=== PATIENT | female | born 1970 | race American Indian/Alaskan Native ===

== ENCOUNTER 2021-12-25 11:43 | Emergency (ER) | payer SELFPAY ==
[2021-12-25 12:03] VITALS: BP 165/110
--- NOTE | 2021-12-25 12:41 | Emergency Department Report ---
ED General Adult HPI - General Chief complaint: Psych Stated complaint: I came here because my son asked me to come Time Seen by Provider: 12/25/21 12:04 Source: patient, RN notes reviewed Mode of arrival: Ambulatory Limitations: No Limitations - History of Present Illness Initial comments: This patient is a pleasant and cooperative 51-year-old female, who presents to the ER because she states her family members requested a psychiatric evaluation. The patient denies physical pain. The patient denies homicidality, suicidality, overdose and hallucinations. The patient denies cough and urinary symptoms. The patient does endorse that she is mildly depressed, and not eating much, because of the recent demise of a family member. She is not particular interested at this time and speaking to a mental health counselor or central processing tech. However, she is amenable and agreeable to history and physical with this author. -: Gradual Consistency: constant Improves with: none Worsens with: none Associated Symptoms: denies other symptoms - Related Data Allergies Allergy/AdvReac Type Severity Reaction Status Date / Time No Known Allergies Allergy Unverified 12/25/21 12:03 ED Review of Systems ROS: Stated complaint: MENTAL EVAL Other details as noted in HPI Comment: All other systems reviewed and negative Psychiatric: depression. denies: auditory hallucinations, visual hallucinations, homicidal thoughts, suicidal thoughts ED Physical Exam - General Limitations: No Limitations General appearance: alert, in no apparent distress - Head Head exam: Present: atraumatic, normocephalic - Eye Eye exam: Present: normal appearance, EOMI. Absent: nystagmus - ENT ENT exam: Present: normal exam, normal orophraynx, mucous membranes moist, normal external ear exam - Neck Neck exam: Present: normal inspection, full ROM. Absent: tenderness, meni ngismus - Respiratory Respiratory exam: Present: normal lung sounds bilaterally. Absent: respiratory distress, wheezes, rales, rhonchi, stridor, decreased breath sounds - Cardiovascular Cardiovascular Exam: Present: regular rate, normal rhythm, normal heart sounds. Absent: bradycardia, tachycardia, irregular rhythm, systolic murmur, diastolic murmur, rubs, gallop - GI/Abdominal GI/Abdominal exam: Present: soft. Absent: distended, tenderness, guarding, rebound, rigid, pulsatile mass - Extremities Exam Extremities exam: Present: normal inspection, full ROM, other (2+ pulses noted in the bilateral upper and lower extremities. There is no palpable cord. negative Homans sign. Muscular compartments are soft. The pelvis is stable.). Absent: pedal edema, calf tenderness - Back Exam Back exam: Present: normal inspection. Absent: tenderness, CVA tenderness (R), CVA tenderness (L), paraspinal tenderness, vertebral tenderness - Neurological Exam Neurological exam: Present: alert, oriented X3, normal gait, other (No facial droop. Tongue midline. Extraocular movements intact bilaterally. Facial sensation intact to light touch in V1, V2, V3 distribution bilaterally. 5 and a 5 strength in 4 extremities. Sensation intact to light touch in 4 extremities.). Absent: motor sensory deficit - Psychiatric Psychiatric exam: Present: flat affect. Absent: homicidal ideation, suicidal ideation - Skin Skin exam: Present: warm, dry, intact, normal color. Absent: rash ED Course Vital Signs 12/25/21 11:56 Temperature 98.7 F Pulse Rate 94 H Respiratory 17 Rate Blood Pressure 165/110 O2 Sat by Pulse 98 Oximetry ED Medical Decision Making - Lab Data Vital Signs 12/25/21 11:56 Temperature 98.7 F Pulse Rate 94 H Respiratory 17 Rate Blood Pressure 165/110 O2 Sat by Pulse 98 Oximetry - Medical Decision Making Differential diagnosis, including but not limited to: Depression, dysthymia, encounter for medical screening examination, encounter for behavioral health screening examination Assessment and plan: 51-year-old female, who is afebrile, with reassuring vital signs, clinically sober, elevated blood pressure reviewed and appreciated, asymptomatic (please reference the [employer] clinical policy on asymptomatic hypertension), who endorses no acute or emergent medical complaints at this time, and who is depressed, but not homicidal, not suicidal, alert and oriented, ambulatory, GCS 15, does not meet criteria for 1013 hold or involuntary confinement. I did offer the patient opportunity to speak to one of our mental health counselors because of her her depression, but she declined. Patient advised that she may return to the emergency room right away if and when she changes her mind. At this point time, she does not appear to have an emergent medical or psychiatric condition present. Critical care attestation.: If time is entered above; I have spent that time in minutes in the direct care of this critically ill patient, excluding procedure time. ED Disposition Clinical Impression: Encounter for behavioral health screening Disposition: HOME / SELF CARE / HOMELESS Is pt being admited?: No Does the pt Need Aspirin: No Condition: Good Instructions: Depression Screening Additional Instructions: Please avoid consumption of alcohol, tobacco, drugs and smoke products. Please follow-up with your primary care doctor for routine health maintenance and incidental elevated blood pressure within the next month. Please follow-up with an outpatient mental health specialist or psychiatrist for depression within the next week. Please return to the emergency room right away with new pain, worsened pain, migration of pain, projectile vomiting, change in mental status, confusion, inability tolerate liquid feeds, new, worsened or different symptoms not present on the initial emergency room evaluation Please return to the emergency room right away with overdose, homicidality, suicidality, change in mental status, or hallucinations. Referrals: [facility] [Provider Group] - 3-5 Days [facility] [Outside] - 3-5 Days [facility] [Outside] - 3-5 Days Forms: Work/School Release Form(ED)
== END 2021-12-25 15:32 | disposition home or self-care (01) ==
LOC: ED 11:43
DX: Z13.30 Encounter for screening examination for mental health and behavioral disorders, unspecified (principal)
CPT/HCPCS: 99283